=== PATIENT | male | born 1935 | race Caucasian/White ===

== ENCOUNTER 2017-09-21 17:29 | Inpatient (IN) | payer OTHER ==
[~2017-09-21] VITALS: Ht 172.7 cm; Wt 78.9 kg
[2017-09-21 17:31] VITALS: BP 170/81
[2017-09-21] MEDS ORDERED: VITAMIN D31000 UNI2 PO (17:35)
[2017-09-21] MEDS ORDERED: ASPIR 8181 MG PO (17:35)
[2017-09-21] MEDS ORDERED: COREG25 MG PO (17:35)
[2017-09-21] MEDS ORDERED: PLAVIX 75 MG TA75 M1 PO (17:35)
[2017-09-21] MEDS ORDERED: AMLODIPINE BESYL5 MG PO (17:35)
[2017-09-21] MEDS ORDERED: CLOTRIMAZOLE-BE15 GM TOP (17:36)
[2017-09-21] MEDS ORDERED: ARICEPT 5 MG TAB5 MG PO (17:36)
[2017-09-21] MEDS ORDERED: PROSCAR 5MG TABL5 MG PO (17:36)
[2017-09-21] MEDS ORDERED: CRANBERRY200 MG PO (17:36)
[2017-09-21] MEDS ORDERED: UNICOMPLEX M TA1 TA1 PO (17:37)
[2017-09-21] MEDS ORDERED: LISINOPRIL20 MG PO (17:37)
[2017-09-21] MEDS ORDERED: METFORMIN HCL500 MG PO (17:37)
[2017-09-21] MEDS ORDERED: TRAMADOL 50 MG50 MG PO (17:37)
[2017-09-21] MEDS ORDERED: NITROGLYCERIN0.4 MG SUBLING (17:37)
[2017-09-21] MEDS ORDERED: CRESTOR5 MG PO (17:37)
[2017-09-21] MEDS ORDERED: FLOMAX0.4 MG PO (17:37)
[2017-09-21 18:20] LABS: ABSOLUTE BASOPHILS 0.1 thou/uL (0.0-0.2); ABSOLUTE EOSINOPHILS 0.2 thou/uL (0.0-0.7); ABSOLUTE LYMPHOCYTES 2.8 thou/uL (0.8-5.3); ABSOLUTE MONOCYTES 0.9 thou/uL (0.0-1.2); ABSOLUTE NEUTROPHILS 5.7 thou/uL (1.6-8.1); BASOPHILS 0.9 %; EOSINOPHILS 2.2 %; HEMATOCRIT 44.4 % (42.0-52.0); HEMOGLOBIN 14.8 gm/dL (14.0-18.0); LYMPHOCYTES 28.9 %; MCH 28.6 pg (26.0-34.0); MCHC 33.4 g/dL (28.0-37.0); MCV 85.7 fL (80.0-100.0); MONOCYTES 9.2 %; MPV 7.7 fl. (7.2-11.1); NUCLEATED RBCS 0 /100WBC; PLATELET COUNT* 368 thou/uL (150-400); POLYS 58.8 %; RBC 5.18 mil/uL (4.50-6.00); WBC 9.7 thou/uL (4.0-11.0)
[2017-09-21 18:25] LABS: ANION GAP 8 mmol/L (7-16); BUN 14 mg/dL (7-18); CALCIUM 9.6 mg/dL (8.5-10.1); CHLORIDE 103 mmol/L (98-107); CO2 28 mmol/L (21-32); CREATININE 0.9 mg/dL (0.6-1.3); GLUCOSE 166 mg/dL (70-99); SODIUM 139 mmol/L (136-145)
[2017-09-21 18:26] LABS: APTT 25.2 Seconds (25.0-31.3); INR 1.1; PROTIME 10.4 Seconds (9.20-11.50)
[2017-09-21 18:37] LABS: ALBUMIN 4.2 g/dL (3.4-5.0); ALKALINE PHOSPHATASE 89 U/L (46-116); NT-PRO BRAIN NAT PEPTIDE 406 pg/mL (<300); SGOT 22 U/L (15-37); SGPT 40 U/L (30-65); TOTAL BILIRUBIN 0.4 mg/dL (<0.1-1.0); TOTAL PROTEIN 8.3 g/dL (6.4-8.2); TROPONIN-I LEVEL <0.06 ng/mL (<0.06)
[2017-09-21 20:11] VITALS: BP 140/77
[2017-09-21 20:36] VITALS: BP 161/80
[2017-09-22] VITALS (14 sets, daily range): BP systolic 106–154; BP diastolic 57–85
--- NOTE | 2017-09-22 05:55 | NUR ---
PATIENT ARRIVED VIA CART FROM ED AROUND 2024. A/OX4 BUT FORGETFUL AND SEEMING MORESO THE NIGHT WENT ON. STATED PT HAS DEMENTIA AND HAS BEEN KNOWN TO GET DRESSED AND WANT TO LEAVE THE HOSPITAL, SO SHE TOOK HIS HOME CLOTHES HOME WITH HER. PT HAS REMEMBERED HE'S AT [facility] ALL NIGHT. VERY PLEASANT BUT WORDING/CONVERSATION IS NOT ALWAYS APPROPRIATE TO DISCUSSION. TROPONIN CAME BACK 1.52 AROUND 134, DR العراقي NOTIFIED AND ORDERS RECEIVED. HEPARIN GTT INFUSING PER PROTOCOL. PT ORIGINALLY DENIED CHEST PAIN THEN STATED IT FELT "TIGHT" LATER, UNABLE TO RATE 1-10, JUST COUNTING OFF NUMBERS TO THIS RN. PT DENIED PAIN ON LAST CHECK. TELE TRACING SR. ON ROOM AIR. VSS. NITRO PASTE ALSO PLACED THIS AM PER ORDERS.NPO SINCE MIDNIGHT. UP TO CHAIR EARLIER.SEE CHARTING. CALL LIGHT IN REACH, BEDALARM IN PLACE, WILL CONTINUE WITH PLAN OF CARE.
--- NOTE | 2017-09-22 07:30 | NUR ---
CHANGE OF SHIFT, BEDSIDE REPORT GIVEN ASSUMED PATIENT CARE PATIENT SEEN AT BEDSIDE, ASLEEP IN BED
--- NOTE | 2017-09-22 10:30 | NUR ---
MET WITH PT, AND DIL TO DISCUSS HOME SITUATION/DC PLANNING. PT LIVES WITH . HE IS INDEPENDENT WITH ADLS, STILL DRIVES SOME. WORKS 2 DAYS A WEEK AND PT IS SAFE TO BE ALONE. FAMILY IS SUPPORTIVE. DOES ADMIT PT HAS SOME 'FORGETFULNESS.' DISCUSSED SOME WAYS TO MANAGE. PT HAS NOT HAD HH OR BEEN TO SNF. PLAN IS TO RETURN HOME AT DC. WILL FOLLOW
[2017-09-22 10:32] LABS: ANION GAP 13 mmol/L (7-16); BUN 11 mg/dL (7-18); CALCIUM 9.1 mg/dL (8.5-10.1); CHLORIDE 103 mmol/L (98-107); CHOLESTEROL 221 mg/dL (<200); CO2 25 mmol/L (21-32); GLUCOSE 165 mg/dL (70-99); HDL CHOLESTEROL 31 mg/dL (>40); LDL CHOLESTEROL 125 mg/dL (<100); POTASSIUM 3.8 mmol/L (3.5-5.1); SODIUM 141 mmol/L (136-145); TC:HDL 7.1 Ratio (Not establshd); TRIGLYCERIDE 327 mg/dL (<150); VLDL 65 mg/dL (<40)
[2017-09-22 10:39] LABS: SERUM ASSESSMENT Clear
--- NOTE | 2017-09-22 15:26 | 2DMMODE ---
[place] [address] 2 D/M-MODE ECHOCARDIOGRAM Name: KAVITHA PADRON Room: [address] ADM IN [facility]#: [id number] Admission: 09/21/17 Attend Phys: Varun Matthew Discharge: Date of : 39 Date of Service: 09/22/17 1525 Report #: [id number] THIS REPORT FOR: //name// APPROVED REPORT Study performed: 09/22/2017 11:34:29 EXAM: Comprehensive 2D, Doppler, and color-flow Echocardiogram Patient Location: In-Patient Room #: 231 Status: routine BSA: 1.97 HR: 82 bpm BP: 154/77 mmHg Rhythm: NSR Other Information Study Quality: Good Indications Acute OR CAD Chest Pain 2D Dimensions LVEF(%): 44.24 (>50%) IVSd: 13.78 (7-11mm) LVOT Diam: 22.05 (18-24mm) LVDd: 47.21 mm PWd: 10.41 (7-11mm) Ascending Ao: 35.92 (22-36mm) LVDs: 36.88 (25-40mm) Aortic Root: 34.10 mm Velazco's LVEF: 44.24 % Volumes Left Atrial Volume (Systole) LA ESV Index: 23.10 mL/m2 Aortic Valve AoV Peak Jorge.: 1.15 m/s AO Peak Gr.: 5.29 mmHg LVOT Max P.90 mmHg AO Mean Gr.: 2.83 mmHg LVOT Mean P.77 mmHg LVOT Max V: 0.99 m/s AO V2 VTI: 18.37 cm LVOT Mean V: 0.60 m/s NEERU (VTI): 3.85 cm2 LVOT V1 VTI: 18.49 cm AI [place]: 2.82 m/s2 [place] [address] 2 D/M-MODE ECHOCARDIOGRAM Name: KAVITHA PADRON Room: [address] IN .R.#: [id number] Admission: 09/21/17 Attend Phys: Varun Matthew Discharge: Date of : 39 Date of Service: 09/22/17 1525 Report #: [id number] AI PHT: 423.01 ms Mitral Valve E/A Ratio: 0.49 MV Decel. Time: 120.17 ms MV E Max Jorge.: 0.41 m/s MV PHT: 34.85 ms MVA (PHT): 6.31 cm2 TDI E/Lateral E': 4.56 E/Medial E': 5.13 Medial E' Jorge.: 0.08 m/s Lateral E' Jorge.: 0.09 m/s Pulmonary Valve PV Peak Jorge.: 1.45 m/s PV Peak Gr.: 8.39 mmHg Tricuspid Valve TR Peak Gr.: 22.51 mmHg RVSP: 27.00 mmHg Left Ventricle The left ventricle is normal size. There is distal septal and anterapical akinesis with mild inferior hypokinesis Mild concentric left ventricular hypertrophy. Left ventricular systolic function is mildly decreased. LVEF is 45%. Grade I - abnormal relaxation pattern. Right Ventricle The right ventricle is normal size. The right ventricular systolic function is normal. Atria The left atrium size is normal. The right atrium size is normal. Aortic Valve Mild aortic valve sclerosis. Mild aortic regurgitation. There is no aortic valvular stenosis. Mitral Valve The mitral valve is normal in structure. Trace mitral regurgitation. No evidence of mitral valve stenosis. Tricuspid Valve The tricuspid valve is normal in structure. Trace tricuspid regurgitation. The RVSP is ___27____ [place] [address] 2 D/M-MODE ECHOCARDIOGRAM Name: KAVITHA PADRON Room: [address]#: [id number] Admission: 09/21/17 Attend Phys: Varun Matthew Discharge: Date of : 39 Date of Service: 09/22/17 1525 Report #: [id number] Pulmonic Valve The pulmonary valve is normal in structure. Trace pulmonic regurgitation. Great Vessels The aortic root is normal in size. IVC is normal in size and collapses with >50% inspiration Pericardium There is no pericardial effusion. <Conclusion> The left ventricle is normal size. Mild concentric left ventricular hypertrophy. Left ventricular systolic function is mildly decreased. Grade I - abnormal relaxation pattern. LVEF is 45%. The right ventricle is normal size. The left atrium size is normal. Mild aortic valve sclerosis. Mild aortic regurgitation. There is no aortic valvular stenosis. The mitral valve is normal in structure. Trace mitral regurgitation. Trace tricuspid regurgitation. The RVSP is ___27____ mmHg. IVC is normal in size and collapses with >50% inspiration There is no pericardial effusion. There is distal septal and anterapical akinesis with mild inferior hypokinesis <ELECTRONICALLY SIGNED> By: Ulices Figueroa MD, FACC 09/22/17 1525 1525 1525 Ulices Figueroa MD, FACC /INF
--- NOTE | 2017-09-22 17:34 | EKG ---
[place] [address] ELECTROCARDIOGRAM REPORT Name: KAVITHA PADRON Room: [address] ADM IN [facility].#: [id number] Admission: 09/21/17 Attend Phys: Gilbert Elizabeth Discharge: Date of : 39 Report #: [id number] THIS REPORT FOR: //name// [facility] ED Test Date: 2017-09-21 Test Time: 17:34:11 Pat Name: KAVITHA PADRON Department: Room: [facility] Gender: M Digital Forensic Analyst: MAX : 1935 Requested By: Ange Liao Order Number: [id number] MD: Inocente Laws Measurements Intervals [place] Rate: 66 P: 18 WA: 163 QRS: -37 QRSD: 120 T: 6 QT: 446 QTc: 468 Interpretive Statements Sinus rhythm IVCD, consider atypical RBBB Minimal ST elevation, anterior leads No previous ECG available for comparison Electronically Signed On 09-22-2017 17:33:48 DYE BOX OPERATOR by Inocente Laws [email or web address] <ELECTRONICALLY SIGNED> By: Inocente Laws MD, [facility] 09/22/17 1733 173 1734 Inocente Laws MD, FACC /EPI
[2017-09-23 04:00] VITALS: BP 140/67
--- NOTE | 2017-09-23 06:35 | NUR ---
ASSUMED CARE AROUND 1929. PT ALERT/PLEASANT LAST NIGHT,MORE IRRITABLE AND CONFUSED THIS AM, BUT REDIRECTABLE. PT SLEPT ABOUT 2 HOURS. PT POST CATH VS STABLE LAST NIGHT, OFF BEDREST AT 2129. RIGHT GROIN CATH DRSG C/D/I, NO BLEEDING OR HEMATOMA NOTED. PT VOIDING PER URINAL AND TOILET. UP SBA TO BR. HEPARIN GTT INFUSING AT 14ML/HR- LAST PTT THIS AM THERAPEUTIC- NO CHANGES MADE TO HEPARIN. TELE MONITOR TRACING SR/SB WITH HR DOWN TO 50'S. ON ROOM AIR. DENIES ANY CHEST OR OTHER PAIN. PT APPEARED RESTLESS THIS AM AND AMBULATED AROUND UNIT AND WAS READY FOR BREAKFAST. PT SITTING IN CHAIR AT THIS TIME WITH ALARM ON. CALL LIGHT IN REACH, WILL CONTINUE WITH PLAN OF CARE.
--- NOTE | 2017-09-23 07:25 | NUR ---
CHANGE OF SHIFT, BEDSIDE REPORT GIVNE ASSUMED PATIENT CARE PATIENT SEEN AT BEDSIDE SITTING UP IN RECLINER WITH CHAIR ALARM AND RESTING
--- NOTE | 2017-09-23 08:42 | CON ---
[address] [address] CONSULTATION Name: NEREIDAKAVITHA Martin Room: [address] IN M.R.#: [id number] Admission: 09/21/17 Attend Phys: Gilbert Elizabeth Discharge: Date of : 39 Report #: [id number] THIS REPORT FOR: //name// CC: Omar Mcginnis MD [facility] Varun Matthew CARDIOLOGY CONSULTATION INDICATION: Kpl-CL-postupswp myocardial infarction. HISTORY OF PRESENT ILLNESS: The patient is a very pleasant 82-year-old gentleman with a history of ischemic cardiomyopathy. He is status post 7-vessel coronary artery bypass grafting remotely. In approximately 2012, he had 7-vessel coronary artery bypass grafting at [facility] with a HICKEY graft to the LAD, saphenous vein graft to the PDA and posterolateral ventricular branch to the right coronary artery and a saphenous vein graft to a diagonal and 3 obtuse marginal branches. By noninvasive studies, his EF has felt to be 45-50%. Last night, he had midsternal chest discomfort. The pain was partially relieved with nitroglycerin. He presented to the hospital for further evaluation. EKG showed some very subtle ST elevation in leads V1 and V2 and ST segment depression in the inferior leads. The patient's pain has resolved. He was placed on heparin drip and continued on his home medications. Of note, he had percutaneous coronary intervention last week with a stent placed to the mid LAD at [facility]. He reports compliance with his Plavix and aspirin. At the time of my interview, he is pain-free. On arrival to the hospital, his troponin was less than 0.06. As of this morning, the peak thus far is 7.82. PAST MEDICAL HISTORY: 1. Coronary artery disease. 2. Ischemic cardiomyopathy. 3. Hypertension. 4. Hyperlipidemia. 5. Type 2 diabetes mellitus. 6. BPH. 7. Mild dementia. PAST SURGICAL HISTORY: 1. Coronary artery bypass grafting. 2. Cholecystectomy. FAMILY HISTORY: The patient's [place] [address] CONSULTATION Name: KAVITHA PADRON Room: [address]#: [id number] Admission: 09/21/17 Attend Phys: Gilbert Elizabeth Discharge: Date of : 39 Report #: [id number] SOCIAL HISTORY: The patient quit smoking over 20 years ago. He does not drink alcohol. He lives with supportive family. ALLERGIES: No known drug allergies. HOME MEDICATIONS: Amlodipine 5 mg daily, aspirin 81 mg daily, carvedilol 25 mg b.i.d., vitamin D 5000 units daily, Plavix 75 mg daily, clotrimazole betamethasone cream topically as directed, cranberry extract 200 mg b.i.d., Aricept 5 mg daily, finasteride 5 mg daily, lisinopril 40 mg daily, metformin 500 mg b.i.d., multivitamin 1 tablet daily, Nitrostat p.r.n., Crestor 5 mg weekly, Flomax 0.4 mg daily, tramadol 50 mg q. 4 hours p.r.n. REVIEW OF SYSTEMS: Positive for generalized weakness without focal paralysis, fever, cough, history of pneumonia and emphysema. He has chest discomfort as outlined above. Reports a history of a heart murmur, type 2 diabetes and he wears glasses without acute visual changes. Otherwise, 14-point review of systems unremarkable. PHYSICAL EXAMINATION: VITAL SIGNS: Stable. Blood pressure was 154/77, pulse 76 and regular. GENERAL: This is a pleasant gentleman in no distress. Mood and affect appropriate. HEENT: Extraocular muscles intact. Mucous membranes are moist. NECK: Shows no jugular venous distention. There are no carotid bruits. CHEST: Reveals clear lung pink without wheezes or rales. CARDIAC: Reveals regular rhythm with a soft grade 1 to 2/6 systolic ejection murmur. ABDOMEN: Reveals normal bowel sounds. The abdomen is soft and nontender. EXTREMITIES: Shows no edema. Peripheral pulses are 2+ and easily palpable. LABORATORY DATA: Reviewed. Electrolytes are within normal limits. BUN 14, creatinine 0.9, serum glucose 166. LFTs are within normal limits. Troponin thus far is 7.82. NT-proBNP was only 406. Lipid profile is pending. White blood cell count 9.7; hemoglobin 14.8; hematocrit 44.4; platelet count 368,000. Chest x-ray showed no acute cardiopulmonary disease. A 12-lead EKG showed sinus rhythm with some ST segment depression in the inferior leads and very subtle ST elevation in leads V1 and V2. IMPRESSION AND RECOMMENDATIONS: 1. Bhu-OS-bfozpxwdo myocardial infarction. Plan to proceed with cardiac catheterization to reassess recent stented area as well as coronary anatomy in general. Continue heparin drip at this time. Continue aspirin and Plavix. 2. Coronary artery disease. The patient is on appropriate medications. We will continue as outlined above. [facility] [address] [place] [address] CONSULTATION Name: KAVITHA PADRON Room: [address] IN .R.#: [id number] Admission: 09/21/17 Attend Phys: Gilbert Elizabeth Discharge: Date of : 39 Report #: [id number] 3. Hypertension. Continue the patient's current antihypertensive regimen. 4. Hyperlipidemia. The patient has had some intolerance to statins. At this time, he is tolerating Crestor once weekly and Zetia daily. We will repeat fasting lipid profile. 5. Type 2 diabetes mellitus per primary physician. 6. Recent percutaneous coronary intervention. Continue dual antiplatelet therapy. If the patient appears to have in-stent restenosis or thrombosis, may need to consider alternate to Plavix. <ELECTRONICALLY SIGNED> By: Inocente Laws MD, FACC 09/23/17 0842 1020 0036Inocente Laws MD, FACC /nt
[2017-09-23] MEDS ORDERED: MELATONIN5 M1 PO (10:20)
[2017-09-23] MEDS ORDERED: TYLENOL325 MG PO (10:20)
[2017-09-23 10:21] VITALS: BP 140/67
[2017-09-23 12:40] VITALS: BP 129/64
[2017-09-23 13:03] VITALS: BP 129/64
[2017-09-23 13:17] VITALS: BP 129/64
--- NOTE | 2017-10-06 15:58 | CARD ---
[facility] [address] [place] [address] CARDIAC CATH REPORT Name: NEREIDAKAVITHA Salazar Room: [address] [facility] IN .R.#: [id number] Admission: 09/21/17 Attend Phys: Gilbert Eilzabeth Discharge: 09/23/17 Date of : 39 Report #: [id number] THIS REPORT FOR: //name// ADDENDUM APPROVED REPORT Patient Details Patient Status: In-Patient Room #: 231 The patient is a 82 year-old male Event Personnel Breanna Peña RN RN, Leena Guadarrama RTR Monitor, Iwona Holm Liston, Michael Umbrella Frame Maker Procedures Performed Art Access - R femoral artery* Left Heart Cath Coronaries, Bypass Grafts [id number] [facility] Hemostasis w/ Mynx Indication Non-STEMI (>12 hrs to = 24 hrs) Previous Procedures/Diagnoses Previous CABGPrevious PCI Procedure Narrative The patient was brought electively to the Cardiac Catheterization Laboratory and was prepped and draped in a sterile manner. The right femoral was infiltrated with 1% Lidocaine subcutaneous anesthesia. A 6fr Ultimum Sheath sheath was inserted into the RFA. Coronary angiography was performed using coronary diagnostic catheters. The right coronary system was accessed and visualized with a Diagnostic 6FR JR 4 catheter. The left coronary system was accessed and visualized with a Diagnostic 6FR JL 4 catheter. The left ventricle was accessed and visualized with a Diagnostic 6FR ANG PIGTAIL catheter. Pre-demployment femoral angiogram was performed . Closure device was deployed with a 6 Fr MynxGrip 6/7F. The patient tolerated the procedure well and there were no complications associated with the procedure. Intraoperative Conscious Sedation Sedation start time: 4:13 Case end Time: 4:42 Fentanyl 25 mcg Versed 1 mg Fluoro Time: 11.7 minutes Dose: DAP 323403 cGycm2 [address] [place] [address] CARDIAC CATH REPORT Name: KAVITHA PADRON Room: [address] IN [facility]#: [id number] Admission: 09/21/17 Attend Phys: Gilbert Elizabeth Discharge: 09/23/17 Date of : 39 Report #: [id number] Contrast Type and Amount: Omnipaque 200 ml Coronary Angiography The patient's coronary anatomy is right dominant. [place] Artery Percent Stenosis Grafts (Complete if Previous CABG=Yes: Percent Stenosis) A HICKEY graft is present and widely patent with the distal anastomoses to the distal left anterior descending coronary artery. A saphenous vein graft that is grafted in sequential fashion to the first diagonal, first obtuse marginal and second obtuse marginal is patent in its proximal portion with good anastomoses to the aorta. The anastomoses at the diagonal appears free of disease. The anastomoses to the second obtuse marginal appears free of significant disease. The jump portion between the second obtuse marginal and distal marginal is occluded with a significant amount of clots. A saphenous vein graft to the third obtuse marginal branch appears patent with good proximal and distal anastomoses. A saphenous vein graft to the PDA is patent. Anastomoses at the aorta is widely patent. Distal anastomoses to the PDA and posterior lateral LV branch appear disease. Diagnostic Cath Left Main The left main coronary artery tapers to a distal 30% narrowing and bifurcates into an LAD and circumflex coronary artery. LAD The left anterior descending coronary artery has a 50% ostial narrowing. There is a stent in the proximal portion it has diffuse up to 50% in-stent restenosis. Distal to the stent the LAD is 99% narrowed and then 90% narrowed. Distally there is a HICKEY graft anastomosis to the left anterior descending coronary artery. Distal to the HICKEY graft is an occluded stent, (Placed 1 week ago, subacute thrombosis). The distal and apical LAD are not visualized beyond this. Diagonal 1 First diagonal appears to be occluded at its origin and fills in its midportion by a saphenous vein graft. The vessel appears diffusely moderately plaqued. Diagonal 2 A moderate size second diagonal fills retrogradely by the HICKEY graft and is free of significant disease. Circumflex Circumflex proper is moderately plaqued without occlusive disease noted. OM1 A small first obtuse marginal branch is diffusely plaqued without hemodynamically significant disease. OM2 A second obtuse marginal branch is occluded at its origin and fills via saphenous vein graft. OM3 A third obtuse marginal branch [place] [address] CARDIAC CATH REPORT Name: KAVITHA PADRON Room: [address] IN .R.#: [id number] Admission: 09/21/17 Attend Phys: Gilbert Elizabeth Discharge: 09/23/17 Date of : 39 Report #: [id number] graft. Occluded at its origin. This vessel is branch. Right Coronary The right coronary artery is 50% narrowed proximally. Mid vessel appears plaqued without significant stenoses. Distally prior to the bifurcation of the PDA and posterior lateral LV branch E right coronary artery 70% stenosis. R PDA The right PDA is 70% stenosed in its midportion. The distal vessel appears to be filled both with antegrade flow and flow from a saphenous pain graft. RPLV The right posterior lateral LV branch is branch and free of significant disease. There is a jump graft from the PDA to the right posterolateral LV branch. Left Ventriculography Left Ventriculography was not performed. Hemodynamics The aortic pressure is 126/60 mmHg with a mean of mmHg. The left ventricular pressure is 125/0 mmHg with a mean of mmHg. The left ventricular end diastolic pressure is 5 mmHg. There was no gradient across the aortic valve upon pullback. Conclusion 1. Severe three-vessel coronary artery disease as outlined above. 2. Patent HICKEY graft to the LAD. 3. Patent saphenous vein graft to the posterior descending and posterolateral LV branches of the right coronary artery with disease at the distal anastomoses. 4. Sequential vein graft to the diagonal and 2 obtuse marginal branches is patent to the level of the second obtuse marginal branch. The jump portion between the second obtuse marginal and third obtuse marginal is occluded with thrombus. 5. Normal left jugular end-diastolic pressure Recommendations 1. Continue aggressive risk factor management. <ELECTRONICALLY SIGNED> By: Inocente Laws MD, FACC 10/06/17 1558 1558 1558Michaexander Laws MD, FACC /INF
== END 2017-09-23 14:05 | disposition home or self-care (01) | DRG 280 ==
LOC: M.ERS 17:29 → M.TBA-ER 18:30 → M.2W 18:30
PROVIDERS: Internal Medicine Cardiovascular Disease; Personal Emergency Response Attendant; ADMIT Internal Medicine
PROC: B21F1ZZ Fluoroscopy of Other Bypass Graft using Low Osmolar Contrast (ICD-10-PCS; principal; 2017-09-22)
PROC: 4A023N7 Measurement of Cardiac Sampling and Pressure, Left Heart, Percutaneous Approach (ICD-10-PCS; principal; 2017-09-22)
PROC: B211YZZ Fluoroscopy of Multiple Coronary Arteries using Other Contrast (ICD-10-PCS; principal; 2017-09-22)
DX: I21.4 Non-ST elevation (NSTEMI) myocardial infarction (principal); I50.43 Acute on chronic combined systolic (congestive) and diastolic (congestive) heart failure; I25.10 Atherosclerotic heart disease of native coronary artery without angina pectoris; F03.90 Unspecified dementia, unspecified severity, without behavioral disturbance, psychotic disturbance, mood disturbance, and anxiety; I25.5 Ischemic cardiomyopathy; I10 Essential (primary) hypertension; E78.5 Hyperlipidemia, unspecified; E11.9 Type 2 diabetes mellitus without complications; N40.0 Benign prostatic hyperplasia without lower urinary tract symptoms; Z90.49 Acquired absence of other specified parts of digestive tract; Z82.49 Family history of ischemic heart disease and other diseases of the circulatory system; Z87.891 Personal history of nicotine dependence; Z95.1 Presence of aortocoronary bypass graft; Z88.8 Allergy status to other drugs, medicaments and biological substances; Z79.82 Long term (current) use of aspirin; Z79.899 Other long term (current) drug therapy; Z95.5 Presence of coronary angioplasty implant and graft